=== PATIENT | female | born 1995 | race Caucasian/White ===

== ENCOUNTER 2017-03-21 13:05 | Inpatient (IN) | payer MEDICAID ==
[~2017-03-21] VITALS: Ht 149.9 cm; Wt 68.7 kg
[~2017-03-21 13:05] MED LIST: AMOX-291 PO; OXYC1TAB7 PO
[2017-03-21] MEDS ORDERED: SODIUM CHLORIDE 0.9% 1,000 ML IV ONE (14:34)
[2017-03-21] MEDS ORDERED: SODIUM CHLORIDE 0.9% 1,000ML IVBOLUS ONE ×2 (15:00→15:30)
[2017-03-21] MEDS ORDERED: SODIUM CHLORIDE FLUSH 10ML SYR IVF ONE (15:00)
[2017-03-21 15:05] LABS: BLOOD UREA NITROGEN 7 mg/dL (7-18)
[2017-03-21] MEDS ORDERED: ACETAMINOPHEN 500 MG TABLET PO ONE (15:30)
[2017-03-21] MEDS ORDERED: LEVOFLOXACIN/PMX 750MG/150ML 150 ML IVPB ONE (15:30)
[2017-03-21] MEDS ORDERED: LEVOFLOXACIN/PMX 750MG/150ML 150 ML ONE (15:41)
[2017-03-21] MEDS ORDERED: ACETAMINOPHEN 500 MG TABLET ONE (15:41)
[2017-03-21] MEDS ORDERED: POLYETHYLENE GLYCOL 17 GM PACKET PO PRN (18:00)
[2017-03-21] MEDS ORDERED: BISACODYL 10 MG SUPP PR PRN (18:00)
[2017-03-21] MEDS ORDERED: ONDANSETRON 2MG/ML, 2ML IVPush PRN (18:00)
[2017-03-21] MEDS: HEPARIN 5,000 UNITS/ML, 1ML SQ SCH (20:30)
[2017-03-21] MEDS ORDERED: CEFTRIAXONE PMX 1GM/50ML 50 ML IV SCH (21:00)
[2017-03-21] MEDS ORDERED: KETOROLAC 30 MG/1 ML IVPush PRN (21:30)
[2017-03-21] MEDS: AZITHROMYCIN 500 MG in SODIUM CHLORIDE 0.9% 250 ML IV SCH (21:45)
[2017-03-21] MEDS: SODIUM CHLORIDE 0.9% 1,000 ML IV SCH (21:46)
[2017-03-21] MEDS: ACETAMINOPHEN 325 MG TABLET PO PRN (23:31)
[2017-03-21 23:32] VITALS: BP 99/65
[2017-03-22 00:11] VITALS: BP 125/77
[2017-03-22] MEDS: HEPARIN 5,000 UNITS/ML, 1ML SQ SCH ×3 (04:17→20:30)
[2017-03-22 06:42] LABS: ASPARTATE AMINO TRANSFERASE 11 U/L (15-37); BLOOD UREA NITROGEN 8 mg/dL (7-18)
[2017-03-22 07:11] VITALS: BP 91/59
[2017-03-22] MEDS: SODIUM CHLORIDE 0.9% 1,000 ML IV SCH (08:09)
[2017-03-22] MEDS: SENNA/DOCUSATE TABLET PO SCH (08:10)
[2017-03-22] MEDS: GUAIFENESIN 200 MG TABLET PO SCH ×3 (09:26→21:29)
[2017-03-22] MEDS: CEFTRIAXONE PMX 1GM/50ML 50 ML IV SCH ×2 (09:26→20:32)
[2017-03-22] MEDS: SODIUM CHLORIDE 0.45% 1,000 ML IV SCH ×2 (09:26→16:47)
[2017-03-22 12:47] VITALS: BP 105/74
[2017-03-22] MEDS: ACETAMINOPHEN 325 MG TABLET PO PRN (16:47)
[2017-03-22 21:00] VITALS: BP 104/67
[2017-03-22] MEDS: AZITHROMYCIN 500 MG in SODIUM CHLORIDE 0.9% 250 ML IV SCH (21:29)
[2017-03-23] MEDS: SODIUM CHLORIDE 0.45% 1,000 ML IV SCH ×2 (01:00→08:45)
[2017-03-23 02:00] VITALS: BP 92/55
[2017-03-23] MEDS: HEPARIN 5,000 UNITS/ML, 1ML SQ SCH (04:20)
[2017-03-23] MEDS: ACETAMINOPHEN 325 MG TABLET PO PRN (05:07)
[2017-03-23 05:56] LABS: BLOOD UREA NITROGEN 5 mg/dL (7-18)
[2017-03-23] MEDS: GUAIFENESIN 200 MG TABLET PO SCH (06:10)
[2017-03-23 07:53] VITALS: BP 90/58
[2017-03-23] MEDS: CEFTRIAXONE PMX 1GM/50ML 50 ML IV SCH (08:47)
[2017-03-23] MEDS: SENNA/DOCUSATE TABLET PO SCH (08:53)
[2017-03-23] MEDS ORDERED: CEFD300C37 PO (09:30)
[2017-03-23] MEDS ORDERED: GUAI200T3 PO (09:30)
[2017-03-24] MEDS ORDERED: PNEUMOC 13-VALENT VACC, 0.5 ML IM-VACC ONE (11:00)
== END 2017-03-23 12:09 | disposition home or self-care (01) | DRG 871 ==
LOC: ED 17:31 → EDIP 17:36 → 4EST 19:00 → DCLOUNGE 03-23 11:55
PROVIDERS: ADMIT Family Medicine; ATTEND Family Medicine
DX: A41.9 Sepsis, unspecified organism (principal); J18.9 Pneumonia, unspecified organism; E87.1 Hypo-osmolality and hyponatremia; D75.89 Other specified diseases of blood and blood-forming organs; Z83.2 Family history of diseases of the blood and blood-forming organs and certain disorders involving the immune mechanism; Z23 Encounter for immunization
CPT/HCPCS: 36415; 71010; 80048; 80053; 81001; 82040; 83605; 84145; 84439; 84443; 84480; 84703; 85025; 85651; 86140; 87040; 87070; 87086; 87205; 93005; 96365; 96366; J0456; J0696; J1956; G0009; J7030; J7050

== ENCOUNTER 2019-05-27 18:11 | Emergency (ER) | payer BC, MEDICAID, OTHER ==
[~2019-05-27] VITALS: Ht 149.9 cm; Wt 74.0 kg
[~2019-05-27 18:11] MED LIST changes: +CEFD300C37 PO; +GUAI200T3 PO
[2019-05-27 18:48] LABS: BASOPHILS # (AUTO) 0.06 x10^3/uL (0-0.1); BASOPHILS % (AUTO) 1 % (0-1); EOSINOPHILS # (AUTO) 0.11 x10^3/uL (0-0.4); EOSINOPHILS % (AUTO) 1 % (1-7); LYMPHOCYTES # (AUTO) 2.64 x10^3/uL (1-3.4); LYMPHOCYTES % (AUTO) 21 % (22-44); MD NO; MEAN CORPUSCULAR HEMOGLOBIN 28.7 pg (27.0-34.8); MEAN CORPUSCULAR HGB CONC 33.3 g/dL (32.4-35.8); MEAN CORPUSCULAR VOLUME 86.4 fL (80-100); MEAN PLATELET VOLUME 7.1 fL (7.4-10.4); MONOCYTES % (AUTO) 3 % (2-9); NEUTROPHILS # (AUTO) 9.12 x10^3/uL (1.8-6.8); NEUTROPHILS % (AUTO) 74 % (42-75); PLATELET COUNT 568 x10^3/uL (130-400); RED BLOOD COUNT 4.99 x10^6/uL (3.82-5.3)
[2019-05-27 19:02] LABS: ALBUMIN 3.7 g/dL (3.4-5.0); ANION GAP 8 mmol/L (5-15); CHLORIDE 107 mmol/L (98-107)
[2019-05-27 19:07] LABS: ALANINE AMINOTRANSFERASE 32 U/L (12-78); ALKALINE PHOSPHATASE 105 U/L (45-117); CREATININE 0.84 mg/dL (0.55-1.02); TOTAL PROTEIN 8.9 g/dL (6.4-8.2)
--- NOTE | 2019-05-27 19:28 | NUR ---
SHASHI RN: PT TO ROOM FROM LOBBY.
--- NOTE | 2019-05-27 19:33 | NUR ---
amb to room, ua collected and sent to lab.
[2019-05-27 19:41] LABS: MICROSCOPIC AUTO
[2019-05-27 19:42] LABS: CULTURE INDICATED? YES
--- NOTE | 2019-05-27 20:12 | NUR ---
PT STATES SHE HAS NOT HAD A BM FOR FOUR DAYS. PAIN IN RIGHT/LEFT FLANK, RIGHT UPPER AND LOWER QUADRANT PAIN 8/10. PT STATES SHE HAS BEEN TAKING A WEIGHT LOSS PILL FROM [facility] AND HER SYMPTOMS STARTED AROUND THE SAME TIME SHE STARTED TAKING THE WEIGHT LOSS PILL.
--- NOTE | 2019-05-27 20:54 | NUR ---
PTS DIAGNOSTICS ARE RESULTED AND PT PLACED UP FOR RECHECK BY ER MD
[2019-05-27 22:04] VITALS: BP 122/67
--- NOTE | 2019-05-27 22:04 | NUR ---
PT RESTING ON Kart[facility]. NO REQUESTS AT THIS TIME. US COMPLETED WAITING RESULTS
[2019-05-27] MEDS ORDERED: ACETAMINOPHEN 500 MG TABLET ONE (22:12)
[2019-05-27] MEDS ORDERED: ACETAMINOPHEN 500 MG TABLET PO ONE (22:30)
--- NOTE | 2019-05-27 23:12 | NUR ---
Patient/Caregiver given discharge instructions and they have confirmed that they understand the instructions. Patient ambulatory with steady gait.
== END 2019-05-27 23:13 | disposition home or self-care (01) ==
LOC: ED 23:05
DX: N30.00 Acute cystitis without hematuria (principal); R11.10 Vomiting, unspecified
CPT/HCPCS: 36415; 74021; 76770; 80053; 81001; 83690; 84703; 85025; 87077; 87086; 87186; 99284